=== PATIENT | female | born 1995 | race Caucasian/White ===

== ENCOUNTER 2017-05-06 10:12 | Emergency (ER) | payer MEDICAID ==
[~2017-05-06] VITALS: Ht 160 cm; Wt 64.0 kg
[2017-05-06 11:00] LABS: BASOPHILS % 1.2 % (0.0-2.0); EOSINOPHILS % 1.3 % (0.0-5.0); HEMATOCRIT. 36.7 % (36.0-48.0); HEMOGLOBIN. 12.1 g/dL (12.0-16.0); LYMPHOCYTES % 31.1 % (20.0-50.0); MEAN CORPUSCULAR HEMOGLOBIN 28.2 pg (28.0-32.0); MEAN CORPUSCULAR VOLUME 85.6 fL (81.0-99.0); MEAN PLATELET VOLUME 9.8 fl (7.4-10.4); MONOCYTES % 12.1 % (2.0-8.0); NEUTROPHILS % 54.3 % (40.0-76.0); PLATELET 170 x1000/uL (130-400); RED BLOOD CELL COUNT 4.28 mill/uL (4.2-5.4); RED CELL DISTRIBUTION WIDTH 14.1 % (11.6-14.6)
[2017-05-06 11:08] LABS: CARBON DIOXIDE 28 mEq/L (21-32); CHLORIDE 108 mEq/L (98-107)
[2017-05-06 11:16] LABS: B-HCG QUANTITATIVE 23 mIU/mL (<3)
[2017-05-06 13:30] LABS: CLARITY URINE CLEAR (CLEAR); COLOR URINE ORANGE (YELLOW); KETONES URINE NEGATIVE (NEGATIVE); LEUKOCYTE ESTERASE URINE TRACE (NEGATIVE); NITRITE URINE NEGATIVE (NEGATIVE); OCCULT BLOOD URINE 3+ (NEGATIVE); PH URINE 6.5 (4.5-8.0); PROTEIN URINE NEGATIVE (NEGATIVE); SPECIFIC GRAVITY URINE 1.021 (1.005-1.030); UROBILINOGEN URINE 0.2 E.U./dL (0.2-1.0)
[2017-05-06 13:53] VITALS: BP 121/76
== END 2017-05-06 13:54 | disposition home or self-care (01) ==
LOC: ER 11:00
DX: O03.9 Complete or unspecified spontaneous abortion without complication (principal); Z3A.14 14 weeks gestation of pregnancy
CPT/HCPCS: 36415; 76801; 80048; 81001; 84702; 85025; 86850; 86900; 99285

== ENCOUNTER 2018-05-17 11:34 | Emergency (ER) | payer SELFPAY ==
[~2018-05-17] VITALS: Ht 160 cm; Wt 64.0 kg
[2018-05-17] MEDS ORDERED: TETANUS, DIPHTHERIA, PERTUSSIS VAC/PF 0.5ML (>7YR OLD) IM ONE (12:00)
[2018-05-17] MEDS ORDERED: LIDOCAINE HCL 1% 20ML VIAL (Pyxis) INJ MC ONE (14:45)
[2018-05-17] MEDS ORDERED: KETOROLAC 60MG/2ML VIAL IM ONE (14:45)
[2018-05-17] MEDS ORDERED: BACITRACIN ZINC OINT UDPKT TOP ONE (14:45)
[2018-05-17] MEDS ORDERED: LIDOCAINE HCL/PF 1% 10 MG/ML 5ML VIAL INL NR (14:53)
[2018-05-17 16:35] VITALS: BP 115/89
== END 2018-05-17 16:37 | disposition home or self-care (01) ==
LOC: ER 14:07
DX: S61.412A Laceration without foreign body of left hand, initial encounter (principal); F17.200 Nicotine dependence, unspecified, uncomplicated; W26.0XXA Contact with knife, initial encounter; Y93.89 Activity, other specified; Y92.018 Other place in single-family (private) house as the place of occurrence of the external cause
CPT/HCPCS: 12002; 73130; 90471; 90715; 96372; 99284; J1885; J3490

== ENCOUNTER 2018-05-22 12:48 | Emergency (ER) | payer SELFPAY ==
[~2018-05-22] VITALS: Ht 160 cm; Wt 70.9 kg
[2018-05-22 14:00] VITALS: BP 116/70
== END 2018-05-22 14:54 | disposition home or self-care (01) ==
LOC: ER 12:48
DX: T81.4XXD Infection following a procedure, subsequent encounter (principal); B99.8 Other infectious disease; Z48.00 Encounter for change or removal of nonsurgical wound dressing; Y83.8 Other surgical procedures as the cause of abnormal reaction of the patient, or of later complication, without mention of misadventure at the time of the procedure; Y92.018 Other place in single-family (private) house as the place of occurrence of the external cause
CPT/HCPCS: 99283